=== PATIENT | male | born 2005 | race African-American/Black ===

== ENCOUNTER 2023-08-16 09:30 | Emergency (ER) | payer OTHER, SELFPAY ==
[2023-08-16] VITALS (23 sets, daily range): BP systolic 109–139; BP diastolic 48–115; PULSE 120–139; RESP 18–32; TEMP 36.6–36.7; O2SAT 95–100
--- NOTE | ~2023-08-16 | XR_ITS ---
EXAMINATION: XR chest 2V DATE: 08/16/2023 10:45 INDICATION: Shortness of breath TECHNIQUE: Frontal and lateral views of the chest are obtained COMPARISON: None available FINDINGS: There is central peribronchial thickening. No pleural effusion or pneumothorax. The cardiom ediastinal silhouette is normal. The visualized bones and soft tissues are unremarkable. IMPRESSION: 1. Findings suggestive of central bronchiolitis. Reviewed, dictated and finalized at location [facility] [employer]
--- NOTE | 2023-08-16 09:39 | ECG_ITS ---
Measurements Intervals Ault Rate: 125 P: 81 MS: 124 QRS: 79 QRSD: 92 T: 52 QT: 272 QTc: 393 Interpretive Statements SINUS TACHYCARDIA OTHERWISE NORMAL ECG NO PREVIOUS ECG AVAILABLE FOR COMPARISON Electronically Signed On 08-16-2023 17:52:08 [facility] by Nehemias Del Real M.D.
--- NOTE | 2023-08-16 09:55 | ED.SOB ---
HPI - SOB/Dyspnea General Chief Complaint: Shortness of Breath/Dyspnea Stated Complaint: SOB Time Seen by Provider: 08/16/23 09:40 Source: patient Mode of arrival: EMS Limitations: no limitations History of Present Illness HPI Narrative: 17yo male with asthma presents by EMS from [place] with concern for asthma exacerbation. S/p breathing treatment x1 at [place] and x1 by EMS, prednisone by [place], Continues to saturate 92-94percent on 4L. No fevers. Dry cough. At baseline, regimen is an albuterol inhaler PRN, not daily. Triggers include changes in temperature and dry air. He just bought a humdifier but hasn't started using it yet. Never required intubation or BIPAP for asthma exacerbation before. Related Data Allergies Allergy/AdvReac Type Severity Reaction Status Date / Time iodine Allergy Hives Verified 08/16/23 09:40 shellfish derived Allergy Hives Verified 08/16/23 09:40 [facility] Past Medical History Medical History (Updated 08/28/23 @ 08:19 by Jen Sanchez MD) Asthma Exam Const: General: healthy appearing, no acute distress and alert; No confusion, diaphoretic or ill appearing Nutritional Appearance: well nourished Orientation/consciousness: patient oriented x3 Limitations: no limitations HENMT: Head: normal to inspection Other: gross auditory acuity intact Eyes: Conjunctivae: conjunctivae normal Direct Ophthalmoscopy: no photophobia Neck: Neck: normal visual inspection Other: No tracheal tugging Chest: Chest palpation & inspection: normal inspection of the chest Resp: Other: wheezes (left greater than right) Cardio: Rate: tachycardic Rhythm: regular rhythm GI: Inspection: non-distended GI Palp: Yes Soft to palpation Skin: General skin exam: normal color, no jaundice and no pallor Rashes: no rashes Neuro: General: patient oriented x3, moves all extremities and no meningeal signs Speech: normal speech Extrem: General: normal to inspection Psych: Mental Status: mental status grossly normal Affect: normal affect Attitude: cooperative Course Vital Signs Vital signs: Vital Signs Pulse Rate 125 H 08/16/23 09:31 Respiratory Rate 18 08/16/23 09:31 Pulse Oximetry 100 08/16/23 09:31 Oxygen Delivery Room Air 08/16/23 09:31 Temperature 98 F 08/16/23 11:18 Pulse Rate 125 H 08/16/23 12:23 Respiratory Rate 20 08/16/23 12:23 Blood Pressure 136/90 08/16/23 12:23 Pulse Oximetry 100 08/16/23 12:23 Oxygen Delivery Room Air 08/16/23 09:45 MDM - SOB/Dyspnea MDM Narrative Medical decision making narrative: 17yo with history of asthma presents with shortness of breath. He has already received some treatments at [place] including steroid so will defer re-administering. IV fluids for tachycardia. He is treated as an asthma exacerbation but also tests positive for Influenza A. We did discuss that he is a candidate for Tamiflu given his underlying respiratory condition; discussed possible side effects of this medication. Noted the mainstays are rest and hydration. patient does remain persistently tachycardic. However, I believe this is largely due to the several doses of albuterol he has received in addition to the underlying viral process. Differential Diagnosis Differential diagnosis: Likely asthma with exacerbation and other (acute viral syndrome) Lab Data Attestation: I reviewed the patient's lab results. Lab results narrative: Slight leukocytosis, possibly stress response versus due to steroid use. Normal renal function. 08/16/23 09:59 08/16/23 09:59 Labs: Lab Results 08/16/23 08/16/23 Range/Units 09:59 10:20 WBC 11.5 H (4.5-10.0) K/mm3 RBC 4.77 (4.6-6.20) M/mm3 Hgb 15.2 (14.0-18.0) g/dL Hct 45.4 (42.0-52.0) % MCV 95.2 (80-100) fl MCH 31.9 (26-34) pg MCHC 33.5 (32-36) g/dl RDW 11.9 (11.5-14.5) % Plt Count 244 (150-375) k/mm3 MPV 9.2 (7.4-10.4) fl I
[2023-08-16 10:03] LABS: Basophils Percent Auto 0.2 % (0.2-1.2); Hematocrit 45.4 % (42.0-52.0); Hemoglobin 15.2 g/dL (14.0-18.0); Immature Granulocyte Absolute 0.03 K/mm3 (0.00-0.031); Immature Granulocyte Percent A 0.3 % (0-0.5); Lymphocytes Absolute Auto 0.21 K/mm3 (0.9-3.2); Lymphocytes Percent Auto 1.8 % (18.3-44.2); Mean Corpuscular HGB Conc 33.5 g/dl (32-36); Mean Corpuscular Hemoglobin 31.9 pg (26-34); Mean Corpuscular Volume 95.2 fl (80-100); Mean Platelet Volume 9.2 fl (7.4-10.4); Monocytes Absolute Auto 0.3 K/mm3 (0.1-0.6); Monocytes Percent Auto 2.3 % (2.6-8.5); Neutrophils Percent Auto 95.4 % (45.5-73.1); Platelet Count Result 244 k/mm3 (150-375); Red Blood Count 4.77 M/mm3 (4.6-6.20); Red Cell Distribution Width 11.9 % (11.5-14.5); White Blood Count 11.5 K/mm3 (4.5-10.0)
[2023-08-16] MEDS: LEVALBUTEROL NEB 1.25 MG/3 ML INHALATION (10:03)
[2023-08-16] MEDS: IPRATROPIUM BR 0.02% INH SOLN 0.5 MG/2.5 ML VIAL INHALATION (10:03)
[2023-08-16 10:18] LABS: Alanine Aminotransferase 42 U/L (6-50); Albumin Level 4.7 g/dL (3.7-5.6); Alkaline Phosphatase 40 U/L (58-237); Anion Gap 11 mmol/L (8-16); Aspartate Amino Transferase 42 U/L (17-59); Bilirubin,Total 1.1 mg/dL (0.2-1.3); Blood Urea Nitrogen 9 mg/dL (8-21); Calcium 9.6 mg/dL (8.9-10.7); Carbon Dioxide 26 mmol/L (22-30); Chloride 99 mmol/L (98-107); Estimated CRCL calculation 108 ml/min; Estimated Glomerular Filt Rate > 60; Glucose 130 mg/dL (65-110); Lipase 69 U/L (23-300); Potassium 4.2 mmol/L (3.4-5.0); Sodium 136 mmol/L (134-143)
[2023-08-16] MEDS: SODIUM CHLORIDE 0.9% IV 1,000 ML 999 ML IV CONT (10:19)
[2023-08-16 11:00] LABS: Influenza A QL RT-PCR Positive (Negative); Influenza B QL RT-PCR Negative (Negative); SARS-CoV-2 RNA PCR Negative (Negative)
[2023-08-16] MEDS: OSELTAMIVIR PHOSPHATE 75 MG CAPSULE PO (11:52)
== END 2023-08-16 12:25 | disposition home or self-care (01) ==
PROVIDERS: Emergency Provider Student in an Organized Health Care Education/Training Program
DX: J10.1 Influenza due to other identified influenza virus with other respiratory manifestations (principal); J45.901 Unspecified asthma with (acute) exacerbation; Z20.822 Contact with and (suspected) exposure to COVID-19; R00.0 Tachycardia, unspecified
CPT/HCPCS: 36415; 71046; 80053; 83690; 85025; 87636; 93005; 94640; 96360; 99283; A9270; J7030